=== PATIENT | male | born 1960 | race Caucasian/White ===

== ENCOUNTER 2017-06-08 16:24 | Emergency (ER) | payer OTHER ==
[~2017-06-08] VITALS: Ht 182.8 cm; Wt 98.9 kg
[~2017-06-08 16:24] MED LIST: ALKA-SELTZER PL1 TEF; AMOXICILLIN500 MG PO; ANAPROX DS550 MG PO; ASPIRIN ADULT L81 M1 PO; ASPIRIN81 M2 PO; CILOSTAZOL100 MG PO; CIPROFLOXACIN500 MG PO; CLOPIDOGREL75 MG PO; EC NAPROSYN,NA500 MG PO; GABAPENTIN600 MG PO; HYDROCODONE BIT1 T11 PO; IBU-TAB800 MG PO; LAMISIL250 MG PO; LIPITOR20 MG PO; LOMOTIL 0.025 M1 TAB PO; LOTRISONE 0.05%1 CRE TP; NAPROSYN500 MG PO; NASONEX0.05 MG/AC NS; NEXIUM40 MG PO; OMEPRAZOLE D/R20 MG PO; PREVACID30 MG PO; PROTONIX40 MG PO; PROVENTIL0.09 MG/A1 INH; ROBAXIN750 MG PO; TOBRADEX 0.1%-0.5 ML OPH; TRAMADOL HCL50 MG PO; VIBRAMYCIN100 MG PO; VICODIN ES 7501 TAB PO; VITAMIN B; VITAMIN B11000 MCG/M IM; VITAMIN D2000 IU PO; VOLTAREN50 M1 PO; ZOFRAN ODT8 MG PO
[2017-06-08 16:28] VITALS: BP 130/87
== END 2017-06-08 18:45 | disposition home or self-care (01) ==
LOC: ED 16:24
DX: S69.91XA Unspecified injury of right wrist, hand and finger(s), initial encounter (principal); Z79.82 Long term (current) use of aspirin; Z79.899 Other long term (current) drug therapy; W20.8XXA Other cause of strike by thrown, projected or falling object, initial encounter; Y93.89 Activity, other specified; Y92.89 Other specified places as the place of occurrence of the external cause; Y99.8 Other external cause status

== ENCOUNTER 2018-05-12 07:38 | Emergency (ER) | payer OTHER ==
[~2018-05-12] VITALS: Ht 182.8 cm; Wt 97.5 kg
[~2018-05-12 07:38] MED LIST changes: +CYCLOBENZAPRINE5 M3 PO
[2018-05-12 07:41] VITALS: BP 152/72
[2018-05-12] MEDS ORDERED: DELTASONE20 M1 PO (08:48)
== END 2018-05-12 08:51 | disposition home or self-care (01) ==
LOC: ED
DX: M54.42 Lumbago with sciatica, left side (principal); M54.41 Lumbago with sciatica, right side; M51.36 Other intervertebral disc degeneration, lumbar region; M41.86 Other forms of scoliosis, lumbar region; J44.9 Chronic obstructive pulmonary disease, unspecified; K21.9 Gastro-esophageal reflux disease without esophagitis; I73.9 Peripheral vascular disease, unspecified; Z91.041 Radiographic dye allergy status; Z79.899 Other long term (current) drug therapy; Z79.82 Long term (current) use of aspirin

== ENCOUNTER 2019-04-28 11:08 | Emergency (ER) | payer OTHER ==
[~2019-04-28 11:08] MED LIST changes: +DELTASONE20 M1 PO
[2019-04-28 12:41] VITALS: BP 187/90
== END 2019-04-28 12:42 | disposition short-term general hospital (02) ==
LOC: ED 11:08
DX: S82.51XA Displaced fracture of medial malleolus of right tibia, initial encounter for closed fracture (principal); S82.451A Displaced comminuted fracture of shaft of right fibula, initial encounter for closed fracture; S93.04XA Dislocation of right ankle joint, initial encounter; I73.9 Peripheral vascular disease, unspecified; K21.9 Gastro-esophageal reflux disease without esophagitis; Z79.82 Long term (current) use of aspirin; Z79.899 Other long term (current) drug therapy; Z91.041 Radiographic dye allergy status; W23.1XXA Caught, crushed, jammed, or pinched between stationary objects, initial encounter; Y93.89 Activity, other specified; Y92.89 Other specified places as the place of occurrence of the external cause; Y99.8 Other external cause status

== ENCOUNTER → 2020-01-16 | Outpatient (CLI) | payer SELFPAY ==
[~2020-01-16] MED LIST changes: +KEFLEX500 M1 PO
== END | disposition home or self-care (01) ==
LOC: COVID19 14:21
PROVIDERS: ATTEND Internal Medicine Nephrology
DX: Z20.828 Contact with and (suspected) exposure to other viral communicable diseases (principal)

== ENCOUNTER 2020-02-14 03:25 | Emergency (ER) | payer OTHER ==
[~2020-02-14] VITALS: Ht 182.8 cm; Wt 104.3 kg
[~2020-02-14 03:25] MED LIST changes: -KEFLEX500 M1 PO
[2020-02-14 03:31] VITALS: BP 162/89
[2020-02-14] MEDS ORDERED: KEFLEX500 M1 PO (04:47)
== END 2020-02-14 06:22 | disposition home or self-care (01) ==
LOC: ED 03:25
DX: S63.287A Dislocation of proximal interphalangeal joint of left little finger, initial encounter (principal); Z79.899 Other long term (current) drug therapy; Z79.82 Long term (current) use of aspirin; W18.39XA Other fall on same level, initial encounter; Y93.89 Activity, other specified; Y92.89 Other specified places as the place of occurrence of the external cause; Y99.8 Other external cause status

== ENCOUNTER 2020-07-01 16:48 | Emergency (ER) | payer OTHER ==
[~2020-07-01] VITALS: Ht 182.8 cm; Wt 104.8 kg
[~2020-07-01 16:48] MED LIST changes: +KEFLEX500 M1 PO
[2020-07-01 16:49] VITALS: BP 154/79
== END 2020-07-01 17:07 | disposition home or self-care (01) ==
LOC: ED 16:48
DX: S46.211A Strain of muscle, fascia and tendon of other parts of biceps, right arm, initial encounter (principal); F17.200 Nicotine dependence, unspecified, uncomplicated; X50.9XXA Other and unspecified overexertion or strenuous movements or postures, initial encounter; Y93.89 Activity, other specified; Y92.89 Other specified places as the place of occurrence of the external cause; Y99.8 Other external cause status

== ENCOUNTER 2021-02-04 08:52 | Emergency (ER) | payer OTHER ==
[~2021-02-04] VITALS: Wt 97.5 kg
[2021-02-04 08:57] VITALS: BP 133/67
[2021-02-04] MEDS ORDERED: AUGMENTIN 875875 MG PO (12:17)
== END 2021-02-04 12:00 | disposition home or self-care (01) ==
LOC: ED 08:52
DX: S61.217A Laceration without foreign body of left little finger without damage to nail, initial encounter (principal); W22.8XXA Striking against or struck by other objects, initial encounter; Y93.89 Activity, other specified; Y92.89 Other specified places as the place of occurrence of the external cause; Y99.8 Other external cause status

== ENCOUNTER → 2021-02-06 | Outpatient (CLI) | payer OTHER ==
[~2021-02-06] MED LIST changes: +AUGMENTIN 875875 MG PO
== END ==
LOC: WOUNDCARE 00:41
PROVIDERS: ATTEND Nurse Practitioner Family
DX: T81.31XA Disruption of external operation (surgical) wound, not elsewhere classified, initial encounter (principal); I73.9 Peripheral vascular disease, unspecified; E78.00 Pure hypercholesterolemia, unspecified; F17.290 Nicotine dependence, other tobacco product, uncomplicated; Z79.899 Other long term (current) drug therapy; Z79.82 Long term (current) use of aspirin; Y83.8 Other surgical procedures as the cause of abnormal reaction of the patient, or of later complication, without mention of misadventure at the time of the procedure; Y92.238 Other place in hospital as the place of occurrence of the external cause

== ENCOUNTER → 2021-02-13 | Outpatient (CLI) | payer OTHER | LOC: WOUNDCARE 01:09 | PROVIDERS: ATTEND Nurse Practitioner Family | DX: T81.31XD Disruption of external operation (surgical) wound, not elsewhere classified, subsequent encounter (principal); I73.9 Peripheral vascular disease, unspecified; E78.00 Pure hypercholesterolemia, unspecified; F17.290 Nicotine dependence, other tobacco product, uncomplicated; Z79.899 Other long term (current) drug therapy; Y83.8 Other surgical procedures as the cause of abnormal reaction of the patient, or of later complication, without mention of misadventure at the time of the procedure ==

== ENCOUNTER → 2021-02-26 | Outpatient (CLI) | payer OTHER | LOC: RAD 08:47 | PROVIDERS: ATTEND Internal Medicine | DX: M47.22 Other spondylosis with radiculopathy, cervical region (principal); M50.223 Other cervical disc displacement at C6-C7 level ==

== ENCOUNTER → 2021-04-09 | Outpatient (CLI) | payer BC, OTHER | END | disposition home or self-care (01) | LOC: MRI 13:43 | PROVIDERS: ATTEND Internal Medicine | DX: M50.123 Cervical disc disorder at C6-C7 level with radiculopathy (principal); M48.02 Spinal stenosis, cervical region ==

== ENCOUNTER → 2021-12-26 | Outpatient (CLI) | payer BC, OTHER ==
[~2021-12-26] MED LIST changes: +B121000 MCG/1 IM; +CALCIUM 600 MG1 EAC8 PO; +CETIRIZINE10 MG PO; +CITALOPRAM20 MG PO; +CYCLOBENZAPRINE10 MG PO; +CYMBALTA60 MG PO; +DOXYCYCLINE HY100 M9 PO; +MELOXICAM15 MG PO; +OMEPRAZOLE40 MG PO; +PREDNISONE10 MG PO; +VITAMIN C100 M3 PO; +VITAMIN D350 MC2 PO; +[UNRECOGNIZED DRUG - REMARK] PO
== END | disposition home or self-care (01) ==
LOC: US 07:29
PROVIDERS: ATTEND Internal Medicine
DX: R74.8 Abnormal levels of other serum enzymes (principal)

== ENCOUNTER → 2022-02-10 | Emergency (ER) | payer BC, OTHER ==
[~2022-02-10] VITALS: Ht 182.8 cm; Wt 94.3 kg
[2022-02-10 16:24] VITALS: BP 136/62
== END ==
LOC: ED 16:10
DX: R52 Pain, unspecified (principal); Z53.21 Procedure and treatment not carried out due to patient leaving prior to being seen by health care provider

== ENCOUNTER 2022-02-11 07:48 | Emergency (ER) | payer BC, OTHER ==
[~2022-02-11] VITALS: Ht 185.4 cm; Wt 96.6 kg
[2022-02-11 08:07] VITALS: BP 147/81
[2022-02-11 08:32] LABS: BASO % 0.3 % (0.0-1.0); EOS # 0.3 10*3/uL (0.0-0.4); EOS % 2.3 % (1.0-4.0); HEMATOCRIT 42.9 % (42.0-52.0); LYMPH # 2.2 10*3/uL (1.3-4.4); LYMPH % 20.4 % (27.0-41.0); MEAN CELL VOLUME 95.5 fl (80.0-94.0); MEAN CORPUSCULAR HGB 31.2 pg (27.0-31.0); MEAN CORPUSCULAR HGB CONC 32.6 g/dl (33.0-37.0); MEAN PLATELET VOLUME 10.1 fl (9.6-12.3); MONO # 0.9 10*3/uL (0.1-1.0); MONO % 8.5 % (3.0-9.0); NEUT # 7.3 10*3/uL (2.3-7.9); NEUT % 68.1 % (47.0-73.0); PLATELET COUNT AUTOMATED 196 10*3/uL (130-400); RED BLOOD COUNT 4.49 10*6/uL (4.50-5.90); RED CELL DISTRI WIDTH 14.5 % (0-14.5); WHITE BLOOD COUNT 10.7 10*3/uL (4.8-10.8)
[2022-02-11 08:42] LABS: ACT PARTIAL THROMBO TIME 29.3 SECONDS (20.0-32.1)
[2022-02-11 08:50] LABS: ALKALINE PHOSPHATASE 95 U/L (46-116); BUN 15 mg/dl (9-23); CHLORIDE 102 mmol/L (98-107); CREATININE 0.85 mg/dL (0.70-1.30); LIPASE 40 U/L (12-53); POTASSIUM 4.8 mmol/L (3.4-5.1); SGPT/ALT 8 U/L (10-49); TOTAL PROTEIN 6.7 gm/dL (6.0-8.0)
[2022-02-11 08:53] LABS: BILIRUBIN Negative (Negative); BLOOD Negative (Negative); CLARITY Clear (Clear); COLOR Yellow (Yellow); GLUCOSE Negative (Negative); KETONE Negative (Negative); LEUKO ESTERASE Negative (Negative); NITRITE Negative (Negative)
[2022-02-11 09:20] LABS: RBC 0-2 rbc/hpf (0-2); WBC 0-2 wbc/hpf (0-5)
== END 2022-02-11 10:59 | disposition home or self-care (01) ==
LOC: ED 07:48
PROVIDERS: Emergency Medicine
DX: R10.32 Left lower quadrant pain (principal); Z91.041 Radiographic dye allergy status

== ENCOUNTER 2022-02-16 10:23 | Emergency (ER) | payer BC, OTHER ==
[~2022-02-16] VITALS: Ht 182.8 cm; Wt 96.6 kg
[2022-02-16 11:03] VITALS: BP 117/70
[2022-02-16 12:17] LABS: BILIRUBIN Negative (Negative); BLOOD 3+ (Negative); CLARITY Turbid (Clear); COLOR Orange (Yellow); GLUCOSE Negative (Negative); KETONE Negative (Negative); LEUKO ESTERASE 1+ (Negative); NITRITE Negative (Negative); SPECIFIC GRAVITY 1.015 (1.001-1.030)
[2022-02-16 12:30] LABS: RBC TNTC rbc/hpf (0-2)
[2022-02-16 12:55] LABS: BASO % 0.2 % (0.0-1.0); EOS # 0.3 10*3/uL (0.0-0.4); EOS % 1.5 % (1.0-4.0); HEMATOCRIT 45.7 % (42.0-52.0); LYMPH # 0.8 10*3/uL (1.3-4.4); LYMPH % 4.7 % (27.0-41.0); MEAN CELL VOLUME 92.3 fl (80.0-94.0); MEAN CORPUSCULAR HGB 31.1 pg (27.0-31.0); MEAN CORPUSCULAR HGB CONC 33.7 g/dl (33.0-37.0); MEAN PLATELET VOLUME 10.1 fl (9.6-12.3); MONO # 0.9 10*3/uL (0.1-1.0); MONO % 5.4 % (3.0-9.0); NEUT # 15.2 10*3/uL (2.3-7.9); NEUT % 87.9 % (47.0-73.0); PLATELET COUNT AUTOMATED 216 10*3/uL (130-400); RED BLOOD COUNT 4.95 10*6/uL (4.50-5.90); RED CELL DISTRI WIDTH 14.1 % (0-14.5); WHITE BLOOD COUNT 17.3 10*3/uL (4.8-10.8)
[2022-02-16 13:15] LABS: ALKALINE PHOSPHATASE 99 U/L (46-116); BUN 13 mg/dl (9-23); CHLORIDE 101 mmol/L (98-107); POTASSIUM 4.8 mmol/L (3.4-5.1); SGPT/ALT 7 U/L (10-49)
[2022-02-16] MEDS ORDERED: CIPRO250 MG PO ×2 (13:18)
== END 2022-02-16 11:00 | disposition home or self-care (01) ==
LOC: ED 10:23
PROVIDERS: Student in an Organized Health Care Education/Training Program
DX: N39.0 Urinary tract infection, site not specified (principal); Z79.899 Other long term (current) drug therapy; Z79.82 Long term (current) use of aspirin

== ENCOUNTER → 2022-02-25 | Outpatient (CLI) | payer BC, OTHER ==
[~2022-02-25] MED LIST changes: +CIPRO250 MG PO
[2022-02-25 12:25] LABS: BASO # 0.1 10*3/uL (0.0-0.1); BASO % 0.6 % (0.0-1.0); EOS # 0.2 10*3/uL (0.0-0.4); EOS % 2.8 % (1.0-4.0); HEMATOCRIT 41.2 % (42.0-52.0); LYMPH # 2.2 10*3/uL (1.3-4.4); LYMPH % 24.7 % (27.0-41.0); MEAN CELL VOLUME 95.8 fl (80.0-94.0); MEAN CORPUSCULAR HGB 31.4 pg (27.0-31.0); MEAN CORPUSCULAR HGB CONC 32.8 g/dl (33.0-37.0); MEAN PLATELET VOLUME 10.4 fl (9.6-12.3); MONO # 0.8 10*3/uL (0.1-1.0); MONO % 8.6 % (3.0-9.0); NEUT # 5.5 10*3/uL (2.3-7.9); PLATELET COUNT AUTOMATED 215 10*3/uL (130-400); RED CELL DISTRI WIDTH 14.1 % (0-14.5); WHITE BLOOD COUNT 8.7 10*3/uL (4.8-10.8)
[2022-02-25 12:26] LABS: BILIRUBIN Negative (Negative); BLOOD Negative (Negative); CLARITY Clear (Clear); COLOR Yellow (Yellow); GLUCOSE Negative (Negative); KETONE Negative (Negative); LEUKO ESTERASE Negative (Negative); NITRITE Negative (Negative); PH 6.5 (4.5-8.0); SPECIFIC GRAVITY >= 1.030 (1.001-1.030); UROBILINOGEN 0.2 E.U./dl (0.0-1.0)
[2022-02-25 12:33] LABS: EPITHELIAL CELLS 0-2; WBC 0-2 wbc/hpf (0-5)
[2022-02-25 12:40] LABS: ALKALINE PHOSPHATASE 88 U/L (46-116); BUN 16 mg/dl (9-23); CHLORIDE 103 mmol/L (98-107); POTASSIUM 3.7 mmol/L (3.4-5.1); SGPT/ALT 10 U/L (10-49); TOTAL PROTEIN 6.5 gm/dL (6.0-8.0)
== END | disposition home or self-care (01) ==
LOC: LAB 10:53 → CT 11:00
PROVIDERS: ATTEND Urology
DX: D40.0 Neoplasm of uncertain behavior of prostate (principal); N20.0 Calculus of kidney; R53.83 Other fatigue; R31.9 Hematuria, unspecified

== ENCOUNTER → 2022-05-25 | Outpatient (CLI) | payer BC, OTHER ==
[2022-05-25 16:12] LABS: BILIRUBIN Negative (Negative); BLOOD Negative (Negative); CLARITY Clear (Clear); COLOR Yellow (Yellow); GLUCOSE Negative (Negative); KETONE Negative (Negative); LEUKO ESTERASE Negative (Negative); NITRITE Negative (Negative); PH 5.5 (4.5-8.0); SPECIFIC GRAVITY 1.015 (1.001-1.030); UROBILINOGEN 0.2 E.U./dl (0.0-1.0)
[2022-05-25 17:25] LABS: RBC 0-2 rbc/hpf (0-2); WBC 0-2 wbc/hpf (0-5)
== END | disposition home or self-care (01) ==
LOC: LAB 15:40
PROVIDERS: ATTEND Urology
DX: D40.0 Neoplasm of uncertain behavior of prostate (principal)